=== PATIENT | female | born 1970 | race Caucasian/White ===

== ENCOUNTER 2017-03-15 10:23 | Outpatient (CLI) | payer MEDICAID ==
[2017-03-15 14:22] LABS: BASOPHILS # (AUTO) 0.1 10^3/uL (0.0-0.1); BASOPHILS % (AUTO) 0.7 %; EOSINOPHILS # (AUTO) 0.1 10^3/uL (0.0-0.7); EOSINOPHILS % (AUTO) 1.7 %; HCT - HEMATOCRIT 44.2 % (37.0-47.0); HGB - HEMOGLOBIN 15.1 g/dL (12.0-16.0); LYMPHOCYTES # (AUTO) 3.2 10^3/uL (1.5-3.5); LYMPHOCYTES % (AUTO) 40.3 %; MEAN CORPUSCULAR HGB CONC 34.1 g/dL (32.0-36.0); MEAN CORPUSCULAR VOLUME 90.9 fL (81.0-99.0); MEAN PLATELET VOLUME 9.7 fL (7.9-10.8); MONOCYTES # (AUTO) 0.5 10^3/uL (0.0-1.0); MONOCYTES % (AUTO) 6.2 %; NEUTROPHILS # (AUTO) 4.1 10^3/uL (1.5-6.6); NEUTROPHILS % (AUTO) 51.1 %; RED BLOOD COUNT 4.87 10^6/uL (4.20-5.40); RED CELL DISTRIBUTION WIDTH 13.4 % (12.0-15.0); UNCORRECTED WHITE BLOOD COUNT 8.1 x10^3/uL; WHITE BLOOD COUNT 8.1 x10^3/uL (4.8-10.8)
[2017-03-15 14:51] LABS: ALBUMIN/GLOBULIN RATIO 1.4 (1.0-2.2); BILIRUBIN,TOTAL 0.2 mg/dL (0.2-1.0); BUN - BLOOD UREA NITROGEN 16 mg/dL (6-20); CALCIUM 9.6 mg/dL (8.5-10.3); CARBON DIOXIDE - CO2 22 mmol/L (21-32); CHLORIDE 109 mmol/L (101-111); CHOL/HDL RATIO 6.2 (<4.4); CHOLESTEROL 272 mg/dL; CREATININE 0.8 mg/dL (0.4-1.0); GFR - MDRD 77 (>89); GLUCOSE 78 mg/dL (70-100); HDL CHOLESTEROL 44 mg/dL; IRON 84 ug/dL (28-170); LDL/HDL RATIO 4.3 (<4.4); POTASSIUM 4.5 mmol/L (3.5-5.0); SODIUM 140 mmol/L (135-145); TOTAL IRON BINDING CAPACITY 412 ug/dL (250-450); TOTAL PROTEIN 7.4 g/dL (6.7-8.2); TRANSFERRIN 294 mg/dL (192-382); TRIGLYCERIDES 196 mg/dL; VLDL CHOLESTEROL 39 mg/dL
[2017-03-15 14:55] LABS: FERRITIN 32.3 ng/mL (11.0-306.8)
[2017-03-15 15:16] LABS: THYROID STIMULATING HORMONE 1.46 uIU/mL (0.34-5.60)
== END 2017-03-15 10:24 | disposition home or self-care (01) ==
LOC: LAB.N 10:23
PROVIDERS: ATTEND Nurse Practitioner Gerontology
DX: Z13.9 Encounter for screening, unspecified (principal); E78.5 Hyperlipidemia, unspecified; D64.9 Anemia, unspecified
CPT/HCPCS: 36415; 80053; 80061; 82728; 83540; 84443; 84466; 85025

== ENCOUNTER 2017-08-10 08:00 | Outpatient (CLI) | payer MEDICAID ==
[2017-08-10 13:34] LABS: CHOL/HDL RATIO 4.4 (<4.4); CHOLESTEROL 204 mg/dL; HDL CHOLESTEROL 46 mg/dL; LDL CHOLESTEROL,CALCULATED 115 mg/dL; LDL/HDL RATIO 2.5 (<4.4); VLDL CHOLESTEROL 43 mg/dL
== END 2017-08-10 08:01 | disposition home or self-care (01) ==
LOC: LAB.N 08:00
PROVIDERS: ATTEND Nurse Practitioner Gerontology
DX: E78.5 Hyperlipidemia, unspecified (principal)
CPT/HCPCS: 36415; 80061; 83721

== ENCOUNTER 2018-05-02 08:14 | Outpatient (CLI) | payer MEDICAID ==
[2018-05-02 12:23] LABS: BASOPHILS % (AUTO) 0.5 %; EOSINOPHILS # (AUTO) 0.2 10^3/uL (0.0-0.7); EOSINOPHILS % (AUTO) 2.1 %; HGB - HEMOGLOBIN 15.2 g/dL (12.0-16.0); LYMPHOCYTES # (AUTO) 1.6 10^3/uL (1.5-3.5); LYMPHOCYTES % (AUTO) 20.8 %; MEAN CORPUSCULAR HEMOGLOBIN 31.5 pg (27.0-31.0); MEAN CORPUSCULAR HGB CONC 34.4 g/dL (32.0-36.0); MEAN CORPUSCULAR VOLUME 91.4 fL (81.0-99.0); MEAN PLATELET VOLUME 9.8 fL (7.9-10.8); MONOCYTES # (AUTO) 0.4 10^3/uL (0.0-1.0); MONOCYTES % (AUTO) 5.5 %; NEUTROPHILS # (AUTO) 5.3 10^3/uL (1.5-6.6); NEUTROPHILS % (AUTO) 71.1 %; PLT - PLATELET COUNT 255 10^3/uL (130-450); RED BLOOD COUNT 4.83 10^6/uL (4.20-5.40); RED CELL DISTRIBUTION WIDTH 13.5 % (12.0-15.0); WHITE BLOOD COUNT 7.5 x10^3/uL (4.8-10.8)
[2018-05-02 12:44] LABS: ALBUMIN 3.8 g/dL (3.2-5.5); ALBUMIN/GLOBULIN RATIO 1.2 (1.0-2.2); ALKALINE PHOSPHATASE 83 IU/L (42-121); ALT ALANINE AMINOTRANSFERASE 17 IU/L (10-60); AST ASPARTATE AMINOTRANSFERASE 17 IU/L (10-42); BILIRUBIN,TOTAL 0.4 mg/dL (0.2-1.0); BUN - BLOOD UREA NITROGEN 16 mg/dL (6-20); CALCIUM 8.9 mg/dL (8.5-10.3); CARBON DIOXIDE - CO2 23 mmol/L (21-32); CHLORIDE 107 mmol/L (101-111); CHOLESTEROL 231 mg/dL; CREATININE 0.7 mg/dL (0.4-1.0); GFR - MDRD 89 (>89); GLUCOSE 126 mg/dL (70-100); HDL CHOLESTEROL 46 mg/dL; LDL CHOLESTEROL,CALCULATED 125 mg/dL; LDL/HDL RATIO 2.7 (<4.4); SODIUM 139 mmol/L (135-145); VLDL CHOLESTEROL 60 mg/dL
[2018-05-03 11:03] LABS: HEPATITIS C ANTIBODY REACTIVE (NON-REACTIVE)
[2018-05-04 15:26] LABS: HCV RNA QNT <1.18 DETECTED Log IU/mL (NOT DETECTED); HCV RNA QUANT RT PCR <15 DETECTED IU/mL (NOT DETECTED)
== END 2018-05-02 08:15 | disposition home or self-care (01) ==
LOC: LAB.N 08:14
PROVIDERS: ATTEND Nurse Practitioner Gerontology
DX: E78.5 Hyperlipidemia, unspecified (principal); D64.9 Anemia, unspecified; J44.9 Chronic obstructive pulmonary disease, unspecified; Z20.5 Contact with and (suspected) exposure to viral hepatitis
CPT/HCPCS: 36415; 80053; 80061; 83721; 85025; 86803

== ENCOUNTER 2018-07-17 09:31 | Emergency (ER) | payer MEDICAID ==
--- NOTE | 2018-07-17 11:01 | XRAY Report ---
Reason: L 5th toe Procedure Date: 07/17/2018 Accession Number: [id number] / [id number] Procedure: XR - Toe(s) LT CPT Code: FULL RESULT: EXAM: LEFT TOE RADIOGRAPHY EXAM DATE: 07/17/2018 10:32 AM. CLINICAL HISTORY: Left 5th toe trauma. COMPARISON: None. TECHNIQUE: 3 views. FINDINGS: Bones: Normal. No fracture or bone lesion. Joints: Normal. No subluxations. Soft Tissues: Soft tissue swelling is seen at the base of the fifth toe. IMPRESSION: No acute fracture or dislocation is detected. RADIA
--- NOTE | 2018-07-17 12:22 | ED Physician Documentation ---
History of Present Illness - Stated complaint Stated Complaint: LEFT TOE INJ - Chief complaint Chief Complaint: Ext Problem - Additonal information Additional information: hx from pt 48 f stubbed L 5th toe painful and red no diabetes no hx MRSA Review of Systems Constitutional: denies: Fever Skin: reports: Rash Musculoskeletal: reports: Extremity pain PD PAST MEDICAL HISTORY - Past Medical History Past Medical History: Yes Respiratory: Asthma - Past Surgical History Past Surgical History: Yes Ortho: Spine surgery /[employer]AMILY [employer] PROVIDER: Tubal ligation - Present Medications Home Medications: Ambulatory Orders Medication Instructions Recorded Confirmed Albuterol Sulfate [Albuterol 8.5 gm IH Q4H PRN 11/08/14 11/08/14 Sulfate Hfa] Ferrous Sulfate 324 mg PO DAILY 11/08/14 11/08/14 Atorvastatin Calcium 40 mg PO DAILY 07/17/18 07/17/18 Cephalexin [Keflex] 500 mg PO Q6H #28 capsule 07/17/18 - Allergies Allergies/Adverse Reactions: Allergies Allergy/AdvReac Type Severity Reaction Status Date / Time No Known Drug Allergies Allergy Verified 07/17/18 09:47 - Social History Does the pt smoke?: Yes Smoking Status: Current every day smoker Does the pt drink ETOH?: No Does the pt have substance abuse?: No - Immunizations Immunizations are current?: No Immunizations: TDAP >10years/unknown - POLST Patient has POLST: No PD ED PE NORMAL - Vitals Vital signs reviewed: Yes - Extremities Extremities: Other (L foot with cracking and woody between 4th and 5th toe and cellultiis to lateral foot, MSV intact) Results - Vitals Vitals: Vital Signs - 24 hr 07/17/18 09:45 Temperature 35.8 C L Heart Rate 86 Respiratory 16 Rate Blood Pressure 125/81 H O2 Saturation 92 Oxygen O2 Source Room air - Rads (name of study) foot Radiology: See rad report (no acute fx or dislocation) Departure - Departure Disposition: Home, Self Care Clinical Impression: Cellulitis of left foot Condition: Good Instructions: ED Infec Skin Cellulitis Follow-Up: Joycelyn Mccain ARNP [Primary Care Provider] - (Tuesday for a recheck) Prescriptions: Cephalexin [Keflex] 500 mg PO Q6H #28 capsule
[2018-07-17] MEDS ORDERED: BACITRACIN OINT TOP ONE (12:29)
[2018-07-17 12:37] VITALS: BP 120/80
== END 2018-07-17 12:36 | disposition home or self-care (01) ==
LOC: ED 09:31
DX: L03.116 Cellulitis of left lower limb (principal); F17.200 Nicotine dependence, unspecified, uncomplicated
CPT/HCPCS: 73660; 99282; 99283; A9270

== ENCOUNTER 2018-08-31 07:00 | Outpatient (CLI) | payer MEDICAID ==
--- NOTE | 2018-08-31 13:31 | Ultrasound Report ---
Reason: HEPATITIS C Procedure Date: 08/31/2018 Accession Number: [id number] / [id number] Procedure: US - Abdomen Limited CPT Code: FULL RESULT: EXAM: ABDOMEN ULTRASOUND LIMITED, RUQ EXAM DATE: 08/31/2018 07:56 AM. CLINICAL HISTORY: Hepatitis C. COMPARISON: None. TECHNIQUE: Real-time scanning was performed with static images obtained. FINDINGS: Liver: Echogenic liver parenchyma which limits sensitivity for underlying masses, though none are seen. Right lobe of the liver measures at least 16.8 cm. Main portal vein flow: Hepatopetal. Gallbladder: Normal. No stones, wall thickening, or sonographic Chu's sign. Biliary System: CBD measures 4 mm. No intrahepatic or extrahepatic ductal dilatation. Other: None. IMPRESSION: Echogenic liver parenchyma which can be seen with parenchymal disease such as steatosis. No hepatic mass is detected. RADIA
== END 2018-08-31 07:01 | disposition home or self-care (01) ==
LOC: DI 07:00
PROVIDERS: ATTEND Internal Medicine Gastroenterology
DX: B19.20 Unspecified viral hepatitis C without hepatic coma (principal)
CPT/HCPCS: 76705

== ENCOUNTER 2019-07-17 08:00 | Outpatient (CLI) | payer MEDICAID ==
[2019-07-17 12:04] LABS: BASOPHILS % (AUTO) 0.6 %; EOSINOPHILS # (AUTO) 0.1 10^3/uL (0.0-0.7); EOSINOPHILS % (AUTO) 1.8 %; HGB - HEMOGLOBIN 15.5 g/dL (12.0-16.0); LYMPHOCYTES # (AUTO) 2.2 10^3/uL (1.5-3.5); LYMPHOCYTES % (AUTO) 33.3 %; MEAN CORPUSCULAR HEMOGLOBIN 31.3 pg (27.0-31.0); MEAN CORPUSCULAR VOLUME 94.6 fL (81.0-99.0); MONOCYTES # (AUTO) 0.5 10^3/uL (0.0-1.0); MONOCYTES % (AUTO) 7.9 %; NEUTROPHILS # (AUTO) 3.7 10^3/uL (1.5-6.6); NEUTROPHILS % (AUTO) 56.1 %; PLT - PLATELET COUNT 342 10^3/uL (130-450); RED BLOOD COUNT 4.96 10^6/uL (4.20-5.40); RED CELL DISTRIBUTION WIDTH 12.9 % (12.0-15.0); WHITE BLOOD COUNT 6.6 x10^3/uL (4.8-10.8)
[2019-07-17 12:20] LABS: ALBUMIN 4.6 g/dL (3.2-5.5); ALBUMIN/GLOBULIN RATIO 1.5 (1.0-2.2); ALKALINE PHOSPHATASE 67 IU/L (42-121); ALT ALANINE AMINOTRANSFERASE 24 IU/L (10-60); AST ASPARTATE AMINOTRANSFERASE 19 IU/L (10-42); BILIRUBIN,TOTAL 0.7 mg/dL (0.2-1.0); BUN - BLOOD UREA NITROGEN 16 mg/dL (6-20); CALCIUM 9.4 mg/dL (8.5-10.3); CARBON DIOXIDE - CO2 27 mmol/L (21-32); CHLORIDE 105 mmol/L (101-111); CHOL/HDL RATIO 3.2 (<4.4); CHOLESTEROL 137 mg/dL; CREATININE 0.9 mg/dL (0.4-1.0); GFR - MDRD 66 (>89); GLUCOSE 118 mg/dL (70-100); HDL CHOLESTEROL 43 mg/dL; LDL CHOLESTEROL,CALCULATED 70 mg/dL; LDL/HDL RATIO 1.6 (<4.4); SODIUM 139 mmol/L (135-145); TOTAL PROTEIN 7.6 g/dL (6.7-8.2); VLDL CHOLESTEROL 24 mg/dL
== END 2019-07-17 23:59 | disposition home or self-care (01) ==
LOC: LAB.N 08:00
PROVIDERS: ATTEND Nurse Practitioner Gerontology
DX: E78.5 Hyperlipidemia, unspecified (principal); D64.9 Anemia, unspecified
CPT/HCPCS: 36415; 80053; 80061; 83721; 85025

== ENCOUNTER 2019-08-13 07:33 | Outpatient (CLI) | payer MEDICAID ==
--- NOTE | 2019-08-13 08:58 | Ultrasound Report ---
Reason: FAM HX OF AAA Procedure Date: 08/13/2019 Accession Number: [id number] / [id number] Procedure: US - Aorta Screening CPT Code: Final Report FULL RESULT: EXAM: AORTIC DOPPLER ULTRASOUND EXAM DATE: 08/13/2019 07:35 AM. CLINICAL HISTORY: Family history of AAA. COMPARISON: None. TECHNIQUE: Real-time sonographic imaging of retroperitoneal vascular structures, including color-flow, Doppler flow and spectral analysis was performed by the space and storage clerk. Multiple inbound sales representative static images were saved for review. FINDINGS: Aorta: The abdominal aorta was adequately visualized. No evidence for abdominal aortic aneurysm. Aorta: Proximal: Sagittal AP 2.3 cm. Mid: Transverse 2.0 x 2.1 cm. Distal: Transverse 1.7 x 1.8 cm. Caliber: WNL: Yes. Plaque visualized: Yes. Iliacs: Right Iliac: Transverse 1.2 x 1.5 cm. Left Iliac: Transverse 1.0 x 1.2 cm. Iliac Vessels: The visualized proximal common iliac arteries are normal in caliber. Other: None. IMPRESSION: Normal. No abdominal aortic aneurysm. RADIA
== END 2019-08-13 07:34 | disposition home or self-care (01) ==
LOC: DI 07:33
PROVIDERS: ATTEND Nurse Practitioner Gerontology
DX: Z82.49 Family history of ischemic heart disease and other diseases of the circulatory system (principal)
CPT/HCPCS: 76706

== ENCOUNTER 2020-07-24 10:58 | Outpatient (CLI) | payer MEDICAID ==
--- NOTE | 2020-07-24 11:36 | XRAY Report ---
PROCEDURE: Wrist 3 View RT INDICATIONS: RT WRIST CONTUSION TECHNIQUE: 3 views of the wrist were acquired. COMPARISON: None FINDINGS: Bones: No fractures or dislocations. No suspicious bony lesions. Scaphoid view: Scaphoid is grossly intact Soft tissues: No suspicious soft tissue calcifications. IMPRESSION: No acute wrist fracture or dislocation. Reviewed by: Felice Zaman MD on 07/24/2020 11:[address] [facility] Approved by: Felice Zaman MD on 07/24/2020 11:[address] [facility] Station ID: [id number]
== END 2020-07-24 10:59 | disposition home or self-care (01) ==
LOC: DI.N 10:58
PROVIDERS: ATTEND Physician Assistant Medical
DX: S60.211A Contusion of right wrist, initial encounter (principal)

== ENCOUNTER 2020-11-28 13:04 | Outpatient (CLI) | payer MEDICAID ==
--- NOTE | 2020-11-28 13:31 | XRAY Report ---
PROCEDURE: Wrist 4 View RT INDICATIONS: PAIN IN RIGHT WRIST TECHNIQUE: 4 views of the wrist were acquired. COMPARISON: None FINDINGS: Bones: No fractures or dislocations. No suspicious bony lesions. Scaphoid view: Negative Soft tissues: No suspicious soft tissue calcifications. IMPRESSION: No acute fracture. No osseous lesion. If symptoms and/or clinical suspicion for pathology continue, f urther assessment with repeat plain films, or advanced imaging (e.g., CT, MRI, or bone scan) is recom mended for further assessment. Reviewed by: Jonathan Carrillo MD on 11/28/2020 1:29 PM PDT Approved by: Jonathan Carrillo MD on 11/28/2020 1:29 PM PDT Station ID: [id number]
== END 2020-11-28 23:59 | disposition home or self-care (01) ==
LOC: DI.N 13:04
PROVIDERS: ATTEND Family Medicine
DX: M25.531 Pain in right wrist (principal)

== ENCOUNTER 2021-07-17 16:07 | Outpatient (CLI) | payer MEDICAID ==
--- NOTE | 2021-07-17 16:57 | XRAY Report ---
PROCEDURE: Shoulder 2 View BILAT INDICATIONS: BILATERAL SHOULDER PAIN , CHRONIC TECHNIQUE: 4 views of the shoulder were acquired. COMPARISON: None. FINDINGS: Bones: No fractures or dislocations. Moderate bilateral glenohumeral joint and acromioclavicular amilcar int osteoarthritic changes are seen worse on the right side. No suspicious bony lesions. Visualized ribs appear intact. Soft tissues: No suspicious soft tissue calcifications. 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 No fracture or d islocation. No gross soft tissue abnormality. Reviewed by: Felice Zaman MD on 07/17/2021 4:56 PM PST Approved by: Felice Zaman MD on 07/17/2021 4:56 PM PST Station ID: [id number]
== END 2021-07-17 16:08 | disposition home or self-care (01) ==
LOC: DI.N 16:07
PROVIDERS: ATTEND Internal Medicine
DX: M19.012 Primary osteoarthritis, left shoulder (principal); M19.011 Primary osteoarthritis, right shoulder

== ENCOUNTER 2021-07-20 11:30 | Outpatient (CLI) | payer MEDICAID ==
[2021-07-20 22:02] LABS: % IRON SATURATION 15 % (20-50); IRON 56 ug/dL (28-170); TOTAL IRON BINDING CAPACITY 363 ug/dL (250-450); TRANSFERRIN 259 mg/dL (192-382)
[2021-07-21 10:35] LABS: HEPATITIS C ANTIBODY NON-REACTIVE (NON-REACTIVE)
[2021-07-21 15:41] LABS: HIV AG/AB 4TH GEN NON-REACTIVE (NON-REACTIVE)
[2021-07-21 16:42] LABS: HEPATITIS B SURFACE ANTIGEN NON-REACTIVE (NON-REACTIVE)
== END 2021-07-20 11:31 | disposition home or self-care (01) ==
LOC: LAB.N 11:30
PROVIDERS: ATTEND Internal Medicine
DX: D64.0 Hereditary sideroblastic anemia (principal); B19.20 Unspecified viral hepatitis C without hepatic coma
CPT/HCPCS: 36415; 82728; 83540; 84466; 86317; 86704; 86803; 87340; 87389

== ENCOUNTER 2021-08-06 16:18 | Outpatient (CLI) | payer MEDICAID ==
--- NOTE | 2021-08-06 17:01 | XRAY Report ---
PROCEDURE: Cervical Spine 2 View INDICATIONS: CHRONIC NECK PAIN ASSESS FOR DDD TECHNIQUE: 3 view(s) of the cervical spine were acquired. COMPARISON: None. FINDINGS: Bones: No fractures or dislocations to the C7 level. The lateral masses of C1 appear intact on the odontoid view. No suspicious bony lesions. Loss of normal cervical lordosis. Disc space narrowing a nd endplate osteophyte formation, worst at C5-C6. Facet hypertrophy throughout the mid and lower cerv ical spine. Soft tissues: No prevertebral soft tissue swelling. IMPRESSION: Degenerative disc and facet disease. No acute fracture. No osseous lesion. If symptoms a nd/or clinical suspicion for pathology continue, further assessment with repeat plain films, or advan alejandro imaging (e.g., CT, MRI, or bone scan) is recommended for further assessment. Reviewed by: Jonathan Carrillo MD on 08/06/2021 5:00 PM PST Approved by: Jonathan Carrillo MD on 08/06/2021 5:00 PM PST Station ID: [id number]
== END 2021-08-06 16:19 | disposition home or self-care (01) ==
LOC: DI.N 16:18
PROVIDERS: ATTEND Internal Medicine
DX: M50.322 Other cervical disc degeneration at C5-C6 level (principal)

== ENCOUNTER 2021-11-26 11:06 | Outpatient (CLI) | payer MEDICAID ==
--- NOTE | 2021-11-26 14:50 | Mammography Report ---
BILATERAL DIGITAL SCREENING MAMMOGRAM 3D/2D: 11/26/2021 CLINICAL: Routine screening. Comparison is made to exams dated: 09/29/2012 mammogram and 06/22/2011 mammogram - [facility]. There are scattered fibroglandular elements in both breasts. No significant masses, calcifications, or other findings are seen in either breast. There has been no significant interval change. IMPRESSION: NEGATIVE There is no mammographic evidence of malignancy. A 1 year screening mammogram is recommended. This exam was interpreted at Station ID: [id number]. NOTE: For mammograms, a report in lay terms will be sent to the patient. Approximately 15% of breast malignancies will not be visualized mammographically. In the management of a palpable breast mass, a negative mammogram must not discourage biopsy of a clinically suspicious lesion. Electronically Signed By: Juvencio Chaparro M.D. ar/penrad:11/26/2021 14:16:21 ACR BI-RADS Category 1: Negative 3341F PARENCHYMAL PATTERN: (A) - The breast(s) demonstrate(s) scattered fibroglandular densities. BI-RADS CATEGORY: (1) - 1 RECOMMENDATION: (ANNUAL) - Recommend routine annual screening mammography. [id number] 1 year screening LATERALITY: (B)
== END 2021-11-26 11:07 | disposition home or self-care (01) ==
LOC: DI.N 11:06
PROVIDERS: ATTEND Internal Medicine
DX: Z12.31 Encounter for screening mammogram for malignant neoplasm of breast (principal)

== ENCOUNTER 2022-03-11 08:00 | Outpatient (CLI) | payer MEDICAID ==
[2022-03-11 20:46] LABS: BASOPHILS # (AUTO) 0.1 10^3/uL (0.0-0.1); BASOPHILS % (AUTO) 0.7 %; EOSINOPHILS # (AUTO) 0.1 10^3/uL (0.0-0.7); EOSINOPHILS % (AUTO) 1.1 %; HCT - HEMATOCRIT 43.9 % (37.0-47.0); HGB - HEMOGLOBIN 14.8 g/dL (12.0-16.0); LYMPHOCYTES # (AUTO) 2.5 10^3/uL (1.5-3.5); LYMPHOCYTES % (AUTO) 33.5 %; MEAN CORPUSCULAR HEMOGLOBIN 31.3 pg (27.0-31.0); MEAN CORPUSCULAR HGB CONC 33.7 g/dL (32.0-36.0); MEAN CORPUSCULAR VOLUME 92.8 fL (81.0-99.0); MEAN PLATELET VOLUME 11.2 fL (7.9-10.8); MONOCYTES # (AUTO) 0.5 10^3/uL (0.0-1.0); MONOCYTES % (AUTO) 6.8 %; NEUTROPHILS # (AUTO) 4.2 10^3/uL (1.5-6.6); NEUTROPHILS % (AUTO) 57.6 %; PLT - PLATELET COUNT 303 10^3/uL (130-450); RED BLOOD COUNT 4.73 10^6/uL (4.20-5.40); RED CELL DISTRIBUTION WIDTH 13.5 % (12.0-15.0); WHITE BLOOD COUNT 7.3 x10^3/uL (4.8-10.8)
[2022-03-11 21:08] LABS: ALBUMIN 4.2 g/dL (3.2-5.5); ALBUMIN/GLOBULIN RATIO 1.4 (1.0-2.2); BILIRUBIN,TOTAL 0.3 mg/dL (0.2-1.0); CALCIUM 9.3 mg/dL (8.5-10.3); CREATININE 0.7 mg/dL (0.4-1.0); TOTAL PROTEIN 7.2 g/dL (6.7-8.2)
== END 2022-03-11 23:59 | disposition home or self-care (01) ==
LOC: LAB.N 08:00
PROVIDERS: ATTEND Registered Nurse
DX: R10.11 Right upper quadrant pain (principal)
CPT/HCPCS: 36415; 80053; 83690; 85025

== ENCOUNTER 2022-06-02 08:04 | Outpatient (CLI) | payer MEDICAID ==
--- NOTE | 2022-06-02 14:17 | Ultrasound Report ---
PROCEDURE: Abdomen Limited INDICATIONS: RUQ PAIN TECHNIQUE: Real-time scanning was performed of the abdominal and retroperitoneal organs, with image documentatio n. COMPARISON: None. FINDINGS: Liver: Liver is enlarged with increased echotexture. Gallbladder: No stones. Wall thickness is normal measuring 1.6 mm. Biliary ducts: Intrahepatic bile ducts are non-dilated. Extrahepatic bile duct caliber measures 4.2 mm. Normal is 6-7 mm or less in diameter, or 10 mm or less post-cholecystectomy. Pancreas: Visualized portions of the pancreas are sonographically normal. Kidneys: Right kidney measures 10.8 cm long. No hydronephrosis or nephrolithiasis. No solid masses . Iliacs: Proximal common iliac arteries are normal in caliber at less than 2.5 cm. IVC: Intrahepatic inferior vena cava is patent. Miscellaneous: No free abdominal fluid. IMPRESSION: Hepatomegaly with steatosis. Gallbladder is unremarkable. Reviewed by: Isabelle Dickinson MD on 06/02/2022 2:15 PM PST Approved by: Isabelle Dickinson MD on 06/02/2022 2:15 PM PST Station ID: [id number]
== END 2022-06-02 08:05 | disposition home or self-care (01) ==
LOC: DI 08:04
PROVIDERS: ATTEND Registered Nurse
DX: K76.0 Fatty (change of) liver, not elsewhere classified (principal); R10.11 Right upper quadrant pain

== ENCOUNTER 2023-05-31 15:17 | Outpatient (CLI) | payer MEDICAID ==
--- NOTE | 2023-05-31 20:43 | XRAY Report ---
PROCEDURE: Cervical Spine 2 View INDICATIONS: CERVICAL RADICULOPATHY TECHNIQUE: 4 view(s) of the cervical spine were acquired. COMPARISON: Cervical spine radiographs 08/06/2021. FINDINGS: Bones: No fractures or dislocations to the T1 level. The lateral masses of C1 appear intact on the odontoid view. Moderate degenerative change in the cervical spine most pronounced at C5-C6. No suspic ious bony lesions. Soft tissues: No prevertebral soft tissue swelling. IMPRESSION: No acute osseous abnormality. Moderate degenerative changes in the cervical spine at C5-C6. Reviewed by: Khai Cortez MD on 05/31/2023 8:42 PM PST Approved by: Khai Cortez MD on 05/31/2023 8:42 PM PST Station ID: [id number]
--- NOTE | 2023-05-31 20:44 | XRAY Report ---
PROCEDURE: Elbow 3 View RT INDICATIONS: RIGHT ELBOW JOINT PAIN TECHNIQUE: 4 views of the elbow were acquired. COMPARISON: None. FINDINGS: Bones: No fractures or dislocations. Osteophytic lipping at the olecranon. No suspicious bony lesio ns. Soft tissues: No effusion. No suspicious soft tissue calcifications or masses. IMPRESSION: No acute osseous abnormality. Mild degenerative changes at the elbow joint. Reviewed by: Khai Cortez MD on 05/31/2023 8:43 PM PST Approved by: Khai Cortez MD on 05/31/2023 8:43 PM PST Station ID: [id number]
== END 2023-05-31 15:18 | disposition home or self-care (01) ==
LOC: LAB.N 15:17 → DI.N 15:18
PROVIDERS: ATTEND Registered Nurse
DX: M47.812 Spondylosis without myelopathy or radiculopathy, cervical region (principal); M19.021 Primary osteoarthritis, right elbow

== ENCOUNTER 2023-07-14 08:00 | Outpatient (CLI) | payer MEDICAID ==
[2023-07-15 11:11] LABS: BACTERIAL VAGINOSIS DNA NEGATIVE (NEGATIVE); CANDIDA GLABRATA DNA NEGATIVE (NEGATIVE); CANDIDA GROUP DNA NEGATIVE (NEGATIVE); CANDIDA KRUSEI DNA NEGATIVE (NEGATIVE); TRICHOMONAS VAGINALIS DNA POSITIVE (NEGATIVE)
== END 2023-07-14 23:59 | disposition home or self-care (01) ==
LOC: LAB.N 08:00
PROVIDERS: ATTEND Physician Assistant Medical
DX: L29.8 Other pruritus (principal)
CPT/HCPCS: 81514

== ENCOUNTER 2024-02-24 11:01 | Outpatient (CLI) | payer MEDICAID ==
--- NOTE | 2024-02-25 12:37 | XRAY Report ---
PROCEDURE: Lumbar Spine 4V INDICATIONS: DEGENERATIVE JOINT DISEASE, LUMBAR SPINE TECHNIQUE: 3 views of the lumbar spine were acquired. COMPARISON: Correlation is made with the accompanying imaging. FINDINGS: Surgical change: Postoperative changes are seen, with bilateral pedicle screws at the L5-S1 levels. T he screws appear well placed. Vertical fixation rods are seen. No findings of hardware failure or h ardware loosening can be seen. A degree of bony fusion can be seen at L5-S1. Bones: 5 [id number] vertebrae are present. Mild dextroconvex scoliotic curvature is seen. No s ignificant AP alignment abnormality can be seen. No vertebral body compression fractures. No suspi cious bony lesions. There is at least moderate disc space narrowing seen at L2-L3 with moderate disc space narrowing seen at L3-L4 and L4-L5. Facet arthropathy is seen, which is most prominent inferiorly. Soft tissues: Overlying bowel gas pattern is normal. No suspicious soft tissue calcifications. IMPRESSION: Unremarkable L5-S1 postoperative hardware. No acute bony abnormality is seen. Degenerative changes are seen, which are worst at the L2-L3 level. Mild dextroconvex scoliotic curvature is seen. Reviewed by: Yoseph Tate MD on 02/25/2024 11:36 AM [facility] Approved by: Yoseph Tate MD on 02/25/2024 11:36 AM [facility] Station ID: [id number]
--- NOTE | 2024-02-25 12:38 | XRAY Report ---
PROCEDURE: Hips w/Pelvis 2-3V BL INDICATIONS: HIP PAIN TECHNIQUE: There is a standing AP view of the pelvis with bilateral frog-leg views acquired. COMPARISON: Correlation is made with the accompanying imaging. FINDINGS: Bones: No fractures or dislocations. No suspicious bony lesions. The visualized pelvic ring appear s intact. L5-S1 postoperative hardware is seen. There is mild to moderate superior joint space narrowing seen involving both hips. There is associate d remodeling change, with subchondral sclerosis and osteophyte formation. Osteitis pubis can be seen, which is not considered to be abnormal for a female patient of this age. Soft tissues: No suspicious soft tissue calcifications or masses. IMPRESSION: Mild to moderate bilateral hip degenerative change can be seen. If it would be helpful for clinical management decision making, please consider a dedicated hip MRI f or further evaluation (assuming that there is no contraindication). If there is strong clinical conc mika for a labral abnormality, then this should be performed according to the arthrogram protocol. Reviewed by: Yoseph Tate MD on 02/25/2024 11:37 AM [facility] Approved by: Yoseph Tate MD on 02/25/2024 11:37 AM [facility] Station ID: [id number]
== END 2024-02-24 11:02 | disposition home or self-care (01) ==
LOC: DI.N 11:01
PROVIDERS: ATTEND Internal Medicine
DX: M47.816 Spondylosis without myelopathy or radiculopathy, lumbar region (principal); M41.9 Scoliosis, unspecified; M25.551 Pain in right hip; M25.552 Pain in left hip

== ENCOUNTER 2024-03-02 08:22 | Outpatient (CLI) | payer MEDICAID ==
[2024-03-02 12:10] LABS: BASOPHILS % (AUTO) 0.6 %; EOSINOPHILS # (AUTO) 0.1 10^3/uL (0.0-0.7); EOSINOPHILS % (AUTO) 1.8 %; HCT - HEMATOCRIT 41.5 % (37.0-47.0); HGB - HEMOGLOBIN 13.7 g/dL (12.0-16.0); LYMPHOCYTES # (AUTO) 2.7 10^3/uL (1.5-3.5); LYMPHOCYTES % (AUTO) 38.4 %; MEAN CORPUSCULAR HEMOGLOBIN 30.6 pg (27.0-31.0); MEAN CORPUSCULAR VOLUME 92.6 fL (81.0-99.0); MEAN PLATELET VOLUME 11.1 fL (7.9-10.8); MONOCYTES # (AUTO) 0.5 10^3/uL (0.0-1.0); MONOCYTES % (AUTO) 7.7 %; NEUTROPHILS # (AUTO) 3.6 10^3/uL (1.5-6.6); NEUTROPHILS % (AUTO) 51.2 %; PLT - PLATELET COUNT 287 10^3/uL (130-450); RED BLOOD COUNT 4.48 10^6/uL (4.20-5.40); RED CELL DISTRIBUTION WIDTH 12.8 % (12.0-15.0)
[2024-03-02 12:30] LABS: ALBUMIN/GLOBULIN RATIO 1.3 (1.0-2.2); ALKALINE PHOSPHATASE 87 IU/L (42-121); ALT ALANINE AMINOTRANSFERASE 16 IU/L (10-60); AST ASPARTATE AMINOTRANSFERASE 12 IU/L (10-42); BILIRUBIN,TOTAL 0.3 mg/dL (0.2-1.0); BUN - BLOOD UREA NITROGEN 24 mg/dL (6-20); CARBON DIOXIDE - CO2 27 mmol/L (21-32); CHLORIDE 107 mmol/L (101-111); CHOL/HDL RATIO 4.2 (<4.4); CHOLESTEROL 190 mg/dL; CREATININE 0.7 mg/dL (0.6-1.3); GFR - MDRD 87 (>89); GLUCOSE 116 mg/dL (74-104); HDL CHOLESTEROL 45 mg/dL; LDL CHOLESTEROL,CALCULATED 110 mg/dL; LDL/HDL RATIO 2.4 (<4.4); POTASSIUM 4.2 mmol/L (3.5-4.5); SODIUM 139 mmol/L (135-145); TRIGLYCERIDES 175 mg/dL; VLDL CHOLESTEROL 35 mg/dL
[2024-03-02 12:34] LABS: ESTIMATED AVERAGE GLUCOSE 166 mg/dL (70-100); HEMOGLOBIN A1c% 7.4 % (4.27-6.07)
== END 2024-03-02 08:23 | disposition home or self-care (01) ==
LOC: LAB.N 08:22
PROVIDERS: ATTEND Internal Medicine
DX: K76.0 Fatty (change of) liver, not elsewhere classified (principal); E78.2 Mixed hyperlipidemia; R73.01 Impaired fasting glucose
CPT/HCPCS: 36415; 80053; 80061; 83036; 83721; 85025